=== PATIENT | female | born 1945 | race Caucasian/White ===

== ENCOUNTER → 2019-05-14 11:50 | Outpatient (CLI) | payer MEDICARE, SELFPAY ==
[2019-05-14 12:46] LABS: Add Manual Diff / Slide Review NO; Basophils Absolute Auto 100 /uL (0-100); Basophils Percent Auto 1.1 % (0-2); Eosinophils Absolute Auto 200 /uL (0-450); Eosinophils Percent Auto 2.8 % (2-4); Hemoglobin 11.9 g/dL (12.0-16.0); Lymphocytes Absolute Auto 1300 /uL (1100-4500); Lymphocytes Percent Auto 18.3 % (25-40); Mean Corpuscular HGB Conc 32.2 % (30-36); Mean Corpuscular Hemoglobin 26.1 PG (26-34); Mean Corpuscular Volume 80.9 fL (80-100); Monocytes Absolute Auto 500 /uL (0-900); Neutrophils Absolute Auto 5000 /uL (1500-7000); Neutrophils Percent Auto 70.8 % (50-75); Platelet Count 252 X10^3/uL (150-400); Red Blood Cell Count 4.57 X10^6/uL (4.0-5.2); Red Cell Distribution Width 25.3 % (11.6-14.8); White Blood Cell Count 7.1 X10^3/uL (4.5-11.0)
[2019-05-14 12:50] LABS: Reticulocyte Count, Percent 1.4 % (1.06-2.63)
[2019-05-14 13:30] LABS: Anisocytosis 3+; Microcytosis 1+; Poikilocytosis 1+
[2019-05-14 13:36] LABS: Lactate Dehydrogenase 407 U/L (313-618)
[2019-05-14 14:09] LABS: Ferritin 10.8 ng/mL (11.1-264)
[2019-05-14 14:40] LABS: Folate 15.9 ng/mL (2.76-20.0)
[2019-05-16 14:25] LABS: Haptoglobin 182 mg/dL (43-212)
== END ==
PROVIDERS: Visit Provider Internal Medicine
DX: D62 Acute posthemorrhagic anemia (principal); Z79.01 Long term (current) use of anticoagulants; I48.0 Paroxysmal atrial fibrillation
CPT/HCPCS: 36415; 82728; 82746; 83010; 83615; 85025; 85045